=== PATIENT | male | born 1975 | race Caucasian/White ===

== ENCOUNTER 2016-09-20 11:03 | Emergency (ER) | payer MEDICARE, MEDICAID ==
[2016-09-20] MEDS ORDERED: DIPHENHYDRAMINE HCL 50 MG CAPSULE PO ONE (11:42)
--- NOTE | 2016-09-20 11:52 | ER Document Report ---
ED Medical Screen (RME) - General Chief Complaint: Breathing Difficulty Stated Complaint: CHEST PAIN Time Seen by Provider: 09/20/16 11:40 Notes: Patient is having difficulty breathing and feels he "cannot breathe". He says he is feeling disoriented and cannot think straight or talk about anything. His symptoms began this morning. Patient is very anxious and hyperventilating and has some beginning spasms of his wrists. Answers questions and follows commands appropriately. Patient was just evaluated in this ED yesterday and the day before for unusual, perhaps psychotic behavior. There was some consideration and suspicion of substance abuse. Refused Vistaril for his symptoms. TRAVEL OUTSIDE OF THE [place] IN LAST 30 DAYS: No - Related Data Allergies/Adverse Reactions: No Known Allergies Allergy (Verified 09/20/16 11:20) Past Medical History Renal/ Medical History: Denies: Hx Peritoneal Dialysis Physical Exam - Vital signs Vitals: Temp Pulse Resp BP Pulse Ox 98.2 F 96 30 H 139/75 H 99 09/20/16 11:20 09/20/16 11:20 09/20/16 11:20 09/20/16 11:20 09/20/16 11:20 Course - Vital Signs Vital signs: Temp Pulse Resp BP Pulse Ox 98.2 F 96 30 H 139/75 H 99 09/20/16 11:20 09/20/16 11:20 09/20/16 11:20 09/20/16 11:20 09/20/16 11:20
[2016-09-20 12:18] LABS: ABSOLUTE EOSINOPHILS # (AUTO) 0.1 10^3/uL (0.0-0.6); ABSOLUTE LYMPHOCYTES (AUTO) 1.3 10^3/uL (0.5-4.7); ABSOLUTE MONOCYTES (AUTO) 0.4 10^3/uL (0.1-1.4); ABSOLUTE NEUT (AUTO) 6.2 10^3/uL (1.7-8.2); BASOPHILS % (AUTO) 0.2 % (0-2); EOSINOPHILS % (AUTO) 0.7 % (0-6); HEMATOCRIT 37.5 % (37.9-51.0); HGB HCT DIFFERENCE 1.5; LYMPHOCYTES % (AUTO) 16.3 % (13-45); MEAN CORPUSCULAR HEMOGLOBIN 30.8 pg (27.0-33.4); MEAN CORPUSCULAR HGB CONC 34.7 g/dL (32.0-36.0); MEAN CORPUSCULAR VOLUME 89 fl (80-97); MONOCYTES % (AUTO) 5.3 % (3-13); RED BLOOD COUNT 4.22 10^6/uL (4.35-5.55); RED CELL DISTRIBUTION WIDTH 13.8 % (11.5-14.0); SEGMENTED NEUTROPHILS % (AUTO) 77.5 % (42-78); WHITE BLOOD COUNT 8.1 10^3/uL (4.0-10.5)
[2016-09-20 12:51] LABS: CREATINE KINASE MB 2.82 ng/mL (<4.55); TROPONIN I < 0.012 ng/mL
[2016-09-20 12:57] LABS: ALANINE AMINOTRANSFERASE 41 U/L (21-72); ALBUMIN 4.1 g/dL (3.5-5.0); ALKALINE PHOSPHATASE 53 U/L (38-126); ANION GAP 13 (5-19); ASPARTATE AMINO TRANSFERASE 59 U/L (17-59); BILIRUBIN,DIRECT 0.3 mg/dL (0.0-0.4); BILIRUBIN,TOTAL 0.4 mg/dL (0.2-1.3); BLOOD UREA NITROGEN 9 mg/dL (7-20); CALCIUM 9.7 mg/dL (8.4-10.2); CARBON DIOXIDE 23 mmol/L (22-30); CHLORIDE 105 mmol/L (98-107); CREATININE RESULT 0.54 mg/dL (0.52-1.25); GLUCOSE 129 mg/dL (75-110); POTASSIUM 3.7 mmol/L (3.6-5.0); SODIUM 140.5 mmol/L (137-145); TOTAL PROTEIN 6.6 g/dL (6.3-8.2)
[2016-09-20 12:58] LABS: ALCOHOL < 10 mg/dL (NONE DETECTED)
[2016-09-20] MEDS ORDERED: LORAZEPAM 1 MG TABLET PO ONE (14:20)
[2016-09-20] MEDS ORDERED: IBUPROFEN 800 MG TABLET PO ONE (14:21)
--- NOTE | 2016-09-20 14:27 | ER Document Report ---
ED General - General Stated Complaint: CHEST PAIN Time Seen by Provider: 09/20/16 11:40 Mode of Arrival: Medic Information source: Patient TRAVEL OUTSIDE OF THE [place] IN LAST 30 DAYS: No - HPI Notes: Patient is a 41-year-old male who states he was recently moved up from [facility] to come to the area to try to find a place to live but is somewhat nonspecific as he has no family or friends or prospects on the job. Patient was seen last night for what he describes as a misunderstanding related to the police bringing him in from a disturbance with others at a bar. There is no medical records available to describe this, as the computer system was down. Patient was at a local motel and states he awoke with right sided chest pain with spasms and a sensation that he was having trouble breathing. He denies any left-sided chest pain or nausea or fever. He reports no cough or congestion. He was seen and given Benadryl and he now reports the difficulty breathing and pain are improved. He has muscle twitches and some carpal pedal spasms, but declines any history of any medical problems. States she is on no medications denies any allergies. He states he does not drink alcohol or or use drugs. - Related Data Allergies/Adverse Reactions: No Known Allergies Allergy (Verified 09/20/16 11:20) Past Medical History - General Information source: Patient - Social History Smoking Status: Unknown if Ever Smoked Frequency of alcohol use: None Drug Abuse: None Lives with: Alone Family History: Reviewed & Not Pertinent Patient has suicidal ideation: No Patient has homicidal ideation: No Renal/ Medical History: Denies: Hx Peritoneal Dialysis Review of Systems - Review of Systems Notes: REVIEW OF SYSTEMS: CONSTITUTIONAL : Denies fever, chills, or sweats. Denies recent illness. EENT: Denies eye, ear, throat, or mouth pain or symptoms. Denies nasal or sinus congestion or discharge. Denies throat, tongue, or mouth swelling or difficulty swallowing. CARDIOVASCULAR: Denies palpitations or racing or irregular heart beat. Denies ankle edema. RESPIRATORY: Denies cough, cold, or chest congestion. Denies wheezing. GASTROINTESTINAL: Denies abdominal pain or distention. Denies nausea, vomiting , or diarrhea. Denies blood in vomitus, stools, or per rectum. Denies black, tarry stools. Denies constipation. GENITOURINARY: Denies difficulty urinating, painful urination, burning, frequency, blood in urine, or discharge. MUSCULOSKELETAL: Denies back or neck pain or stiffness. Denies joint pain or swelling. SKIN: Denies rash, lesions or sores. HEMATOLOGIC : Denies easy bruising or bleeding. LYMPHATIC: Denies swollen, enlarged glands. NEUROLOGICAL: Denies confusion or altered mental status. Denies passing out or loss of consciousness. Denies dizziness or lightheadedness. Denies headache. Denies weakness or paralysis or loss of use of either side. Denies problems with gait or speech. Denies sensory loss, numbness, or tingling. Denies seizures. PSYCHIATRIC: Admits to some anxiety. Denies depression, suicidal ideation, or homicidal ideation. ALL OTHER SYSTEMS REVIEWED AND NEGATIVE. Dictation was performed using [email or web address] voice recognition software Physical Exam - Vital signs Vitals: Temp Pulse Resp BP Pulse Ox 98.2 F 96 30 H 139/75 H 99 09/20/16 11:20 09/20/16 11:20 09/20/16 11:20 09/20/16 11:20 09/20/16 11:20 - Notes Notes: PHYSICAL EXAMINATION: GENERAL: Well-appearing, well-nourished. very anxious Patient acknowledges some right sided chest wall pain and posterior HEAD: Atraumatic, normocephalic. EYES: Pupils equal round and reactive to light, extraocular movements intact, sclera anicteric, conjunctiva are normal. ENT: Nares patent, oropharynx clear without exudates. Moist mucous membranes. NECK: Normal range of motion, supple without lymphadenopathy LUNGS: Breath sounds clear to auscultation bilaterally and equal. No wheezes rales or rhonchi. HEART: Regular rate and rhythm without murmurs ABDOMEN: Soft, nontender, nondistended abdomen. No guarding, no rebound. No masses appreciated. Musculoskeletal: Normal range of motion, no pitting or edema. No cyanosis. Chest wall pain, but he can be distracted away from this. There is no bony deformity or crepitance or subcutaneous emphysema. NEUROLOGICAL: Cranial nerves grossly intact. Normal speech, normal gait. Normal sensory, motor exams. Somewhat anxious and tremulous. PSYCH: Normal mood, normal affect. SKIN: Warm, Dry, normal turgor, no rashes or lesions noted. Course - Re-evaluation Re-evalutation: 09/20/16 16:20 Patient given Benadryl, ibuprofen and Ativan with complete relief of symptoms. Vital signs were stable. On repeat exam he had no tremors and denied any pain. No evidence for pneumonia, pneumothorax, pulmonary embolus, acute OR or ischemia , hepatitis, GI bleed, electrolyte imbalance or anemia. No obvious evidence for psychosis or obvious psychiatric disturbance. One questions of mild dystonia, but it is now resolved after Benadryl and medications. One questions anxiety reaction with hyperventilation, But this is now resolved. In talking with the patient, he states that he is considering returning to [place] where he has more of a support system. - Vital Signs Vital signs: Temp Pulse Resp BP Pulse Ox 98.2 F 96 13 113/80 98 09/20/16 11:20 09/20/16 11:20 09/20/16 15:01 09/20/16 15:01 09/20/16 15:01 - Laboratory Result Diagrams: 09/20/16 12:05 09/20/16 12:05 Laboratory results interpreted by me: 09/20/16 09/20/16 12:05 12:05 RBC 4.22 L Hgb 13.0 L Hct 37.5 L Glucose 129 H - EKG Interpretation by [facility] EKG shows normal: Sinus rhythm Additional EKG results interpreted by me: EKG as interpreted by mi showed normal sinus rhythm heart rate of 94. There is no gross evidence for acute OR or ischemia identified. There is somewhat prominent P waves. There is no old EKG available for comparison. 09/20/16 14:53 Discharge - Discharge Clinical Impression: Hyperventilation syndrome Chest pain Qualifiers: Chest pain type: unspecified Qualified Code(s): R07.9 - Chest pain, unspecified Condition: Stable Disposition: HOME, SELF-CARE Instructions: Hyperventilation ([facility]), Chest Pain of Unclear Cause ([facility]), Family Physicians / Practices Prescriptions: Ibuprofen 800 mg PO Q8HP PRN #30 tablet PRN Reason: Lorazepam [Ativan 1 mg Tablet] 1 mg PO Q8HP PRN #20 tablet PRN Reason:
[2016-09-20 14:59] LABS: APPEARANCE,URINE CLEAR; BILIRUBIN,URINE NEGATIVE (NEGATIVE); GLUCOSE, URINE NEGATIVE (NEGATIVE); KETONES,URINE NEGATIVE (NEGATIVE); LEUKOCYTE ESTERASE,URINE NEGATIVE (NEGATIVE); NITRITE,URINE NEGATIVE (NEGATIVE); PROTEIN,URINE NEGATIVE (NEGATIVE); URINE SPECIFIC GRAVITY 1.006; UROBILINOGEN,URINE NEGATIVE mg/dL (<2.0)
[2016-09-20 15:21] LABS: URINE METHADONE SCREEN NEGATIVE; URINE OPIATES LOW NEGATIVE; URINE PHENCYCLIDINE SCREEN NEGATIVE
[2016-09-20 15:32] LABS: URINE BARBITURATES SCREEN NEGATIVE
[2016-09-20 16:39] VITALS: BP 128/77
--- NOTE | 2016-09-21 07:13 | EKG REPORT ---
SEVERITY:- OTHERWISE NORMAL ECG - SINUS RHYTHM ABERRANT COMPLEX, POSSIBLY SUPRAVENTRICULAR : Confirmed by: Racheal Regalado MD 21-Sep-2016 07:13:01
== END 2016-09-20 16:39 | disposition home or self-care (01) ==
LOC: EDBD → ER 11:03
DX: R07.89 Other chest pain (principal); F45.8 Other somatoform disorders; F41.9 Anxiety disorder, unspecified; R25.3 Fasciculation; R29.0 Tetany
CPT/HCPCS: 93005; 99285; 36415; 82553; 80307 ×2; 85025; 80053; 81001; 84484; 85379; 71020; 93010; A9270 ×3